=== PATIENT | male | born 1995 | race Caucasian/White ===

== ENCOUNTER 2024-05-06 12:26 | Emergency (ER) | payer OTHER ==
[2024-05-06 12:46] VITALS: RESP 18; TEMP 98
--- NOTE | 2024-05-06 13:11 | XRAY ---
Indication: Pain following injury. Comparison: None 3 view right hand demonstrates displaced comminuted fracture shaft 1st proximal phalanx with soft tissue swelling. Also minimally displaced fracture base ulna styloid. Incidental 3 mm distal radial bone island. No other bony, articular, or soft tissue abnormalities.
--- NOTE | 2024-05-06 13:11 | XRAY ---
Indication: Pain following injury. Comparison: None 2 view right forearm demonstrates minimally displaced fracture base ulna styloid and incidental 3 mm distal radial bone island. No other bony, articular, or soft tissue abnormalities.
[2024-05-06] MEDS ORDERED: Adacel Vial IM ONE (13:18)
[2024-05-06] MEDS: Adacel Vial IM ONE (13:21)
[2024-05-06 13:32] VITALS: BP 122/74; PULSE 53
[2024-05-06] MEDS ORDERED: BACIGUENT PACKET ONE (14:10)
--- NOTE | 2024-05-06 14:20 | ERPHSYRPT ---
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 He believes his hand got stuck on something and attempted to pull hand out and caused further injury. Right thumb appears swollen with a couple small puncture wounds, bleeding controlled. Tenderness to right thumb and right forearm. Limited ROM of right thumb and wrist. Pulses present. Pt is alert and oriented x 3. Respirations are easy. Denies any further injury or complaints at this time. Pt ambulates without difficulty. 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 Patient reports numbness or tingling sensation in the distal phalanx of right thumb. Does have a superficial puncture wound. Still able to move but very painful. Superficial punctures at the distal pulp area with no obvious laceration. Thoroughly cleaned, offered pain medication which she declined. Obtain x-rays which showed proximal phalanx displaced fracture comminuted and also fracture base of ulnar styloid process. I have shared x-rays with Dr. Gaytan orthopedics, recommended transfer to hand surgery [facility]. Tetanus is updated. Discussed with Dr. Boland hand surgery [facility], reviewed history along with x-rays and exam findings, recommended thumb spica, antibiotics, pain medication and outpatient follow-up at [facility] clinic. Patient is placed in thumb spica and ulnar gutter Ortho-Glass splints by staff with intact distal neurovascular on reevaluation. I would give him hydrocodone's and ibuprofen for symptomatic relief along with Bactrim as patient is allergic to penicillins. Discussed plan with the patient which she understands and agrees. Stable for discharge. Allergies/Adverse Reactions: Penicillins Allergy (Intermediate, Verified 05/06/24 12:47) Hives Hx Tetanus, Diphtheria Vaccination/Date Given: No Hx Influenza Vaccination/Date Given: No Hx Pneumococcal Vaccination/Date Given: No Immunizations Up to Date: No Travel Risk - International Travel Have you traveled outside of the country in past 3 weeks: No - Emerging Infectious Disease Are you exhibiting symptoms associated with any current EIDs: No - Review of Systems Constitutional: No Symptoms Ears, Nose, & Throat: No Symptoms Respiratory: No Symptoms Cardiac: No Symptoms Abdominal/Gastrointestinal: No Symptoms Musculoskeletal: Injury, Joint Pain, Joint Swelling Skin: Skin Lesions Neurological: No Symptoms Endocrine: No Symptoms Hematologic/Lymphatic: No Symptoms - Past Medical History Pertinent Past Medical History: No Neurological History: No Pertinent History ENT History: No Pertinent History Cardiac History: No Pertinent History Respiratory History: No Pertinent History Endocrine Medical History: No Pertinent History Musculoskeletal History: No Pertinent History GI Medical History: No Pertinent History History: No Pertinent History Psycho-Social History: No Pertinent History Male Reproductive Disorders: No Pertinent History - Past Surgical History Past Surgical History: No Neuro Surgical History: No Pertinent History Cardiac: No Pertinent History Respiratory: No Pertinent History Gastrointestinal: No Pertinent History Genitourinary: No Pertinent History Musculoskeletal: No Pertinent History Male Surgical History: No Pertinent History - Social History Smoking Status: Current every day smoker Exposure to second hand smoke: No Drug Use: none - Social Determinants of Health Will the patient participate in the screening: Yes Do you worry about a steady place to live?: No Do you have any problems with any of the following?: No known problems In the past 12 months,have you had to go without utilities?: No Transportation Issues: No Has anyone in your support network made you feel unsafe?: No Have you or anyone in your house had to go without enough: No - Nursing Vital Signs Nursing Vital Signs: Initial Vital Signs Pulse Rate 55 L 05/06/24 12:38 Respiratory Rate 18 05/06/24 12:38 Blood Pressure 118/83 05/06/24 12:38 O2 Sat by Pulse Oximetry 99 05/06/24 12:38 Pain Scale Pain Intensity 4 - Physical Exam General Appearance: no apparent distress Neck Exam: normal inspection, full range of motion Cardiovascular/Respiratory Exam: normal breath sounds, regular rate/rhythm Elbow/Forearm Exam: normal inspection, non-tender, no evidence of injury, normal ROM Wrist Exam: normal inspection, bone tenderness (Ulnar styloid process area) Hand Exam: bone tenderness (Right thumb), deformity, limited ROM, soft tissue tenderness, stiffness Neuro/Tendon Exam: No normal sensation (Decreased sensations of fine touch in the distal thumb and decreased/painful movements at interphalangeal and metacarpophalangeal joint) Mental Status Exam: alert, oriented x 3, cooperative Skin Exam: normal color SpO2 Interpretation: normal SpO2: 99 O2 Delivery: Room Air Ordered Tests: Active Orders 24 hr Category Date Time Status FOREARM Stat Exams 05/06/24 12:52 Completed HAND (MINIMUM 3 VIEWS) Stat Exams 05/06/24 12:52 Completed Medication Summary Discontinued Medications Generic Name Dose Route Start Last Admin Trade Name Castillo PRN Reason Stop Dose Admin Bacitracin Zinc Confirm 05/06/24 14:10 Bacitracin Packet 1 Each Pckt Administered 05/06/24 14:11 Dose 1 each .ROUTE .STK-MED ONE Diphtheria/Tetanus/Acell Pertussis 0.5 ml 05/06/24 13:10 05/06/24 13:21 Tdap --Diph,Pertuss(Acell),Tet Vac/Pf 0.5 Ml Vial IM 05/06/24 13:11 0.5 ml .ONCE ONE Administration Diphtheria/Tetanus/Acell Pertussis Confirm 05/06/24 13:18 Tdap --Diph,Pertuss(Acell),Tet Vac/Pf 0.5 Ml Vial Administered 05/06/24 13:19 Dose 0.5 ml IM .STK-MED ONE Trimethoprim/Sulfamethoxazole 1 tab 05/06/24 14:20 05/06/24 14:26 Smz/Tmp Ds Tablet 1 Tablet PO 05/06/24 14:21 1 tab STAT STA Administration Trimethoprim/Sulfamethoxazole Confirm 05/06/24 14:25 Smz/Tmp Ds Tablet 1 Tablet Administered 05/06/24 14:26 Dose 1 tab PO .STK-MED ONE - Progress Progress: improved, re-examined Progress Note: 05/06/24 14:20 28 years old right-handed dominant unsure about tetanus status 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 Patient reports numbness or tingling sensation in the distal phalanx of right thumb. Does have a superficial puncture wound. Still able to move but very painful. Superficial punctures at the distal pulp area with no obvious laceration. Thoroughly cleaned, offered pain medication which she declined. Obtain x-rays which showed proximal phalanx displaced fracture comminuted and also fracture base of ulnar styloid process. I have shared x-rays with Dr. Gaytan orthopedics, recommended transfer to hand surgery [facility]. Tetanus is updated. Discussed with Dr. Boland hand surgery [facility], reviewed history along with x-rays and exam findings, recommended thumb spica, antibiotics, pain medication and outpatient follow-up at bone and joint clinic. Patient is placed in thumb spica and ulnar gutter Ortho-Glass splints by staff with intact distal neurovascular on reevaluation. I would give him hydrocodone's and ibuprofen for symptomatic relief along with Bactrim as patient is allergic to penicillins. Discussed plan with the patient which she understands and agrees. Stable for discharge. Counseled pt/family regarding: diagnosis, need for follow-up, rad results Medical Desision Making - Discussion of managment Care discussed with:: specialist (Dr. Acosta and Dr. Boland orthopedics) - Diagnostic Testing Diagnostic test were ordered, analyzed, and reviewed by me: Yes Radiological Interpretation: Reviewed by me - Risk of complications The pt has a mod risk of morbidity or mortality based on: Need for prescription drug management The pt has a high risk of morbidity or mortality based on: Decision regarding hospitilization or escalation of hosp level of care - Departure Departure Disposition: Home Clinical Impression: Fracture of thumb, Fracture of ulnar styloid Condition: Stable Critical Care Time: No Referrals: DOCTOR,NO FAMILY [Primary Care Provider] - Follow up/PCP as directed Instructions: Hand Fracture (DC), Hand Pain (DC) Additional Instructions: Take pain medications as needed. Intermittent ice application. Follow-up with bone and joint clinic for reevaluation tomorrow morning. Return to ER for intractable pain swelling, bluish discoloration of the thumb, complete numbness etc. Dr. Tin Garcia [facility] [address] [place] [id number] Prescriptions: Hydrocodone/Acetaminophen [Hydrocodone-Acetamin 5-325 mg] 1 tab PO Q6HPRN PRN 3 Days #12 tablet MDD 4 PRN Reason: Pain Smz/Tmp Ds Tablet [Bactrim Ds Tablet] 1 udtab PO BID #14 tablet
[2024-05-06] MEDS ORDERED: BACTRIM DS TABLET PO ONE (14:25)
[2024-05-06] MEDS: BACTRIM DS TABLET PO STA (14:26)
[2024-05-06 14:45] VITALS: O2SAT 97
== END 2024-05-06 14:44 | disposition home or self-care (01) ==
LOC: ED 12:26
DX: S62.511A Displaced fracture of proximal phalanx of right thumb, initial encounter for closed fracture (principal); S52.611A Displaced fracture of right ulna styloid process, initial encounter for closed fracture; W31.89XA Contact with other specified machinery, initial encounter; Y99.0 Civilian activity done for income or pay
CPT/HCPCS: 29125; 73090; 73130; 90471; 90715; 99283; A9270-GY